=== PATIENT | female | born 1950 | race Caucasian/White ===

== ENCOUNTER 2017-01-17 15:18 | Emergency (ER) | payer OTHER, SELFPAY ==
[~2017-01-17 15:18] MED LIST: DIFLUCAN150 MG PO; ENSURE LIQUID237 ML PO; LEVOFLOXACIN500 MG PO; PRILOSEC OTC20 MG PO; SINGULAIR5 MG PO; VANCOMYCIN1.5 GM/250 IV; ZANAFLEX2 MG PO; ZANTAC300 MG PO; ZYVOX600 MG PO
[2017-01-17 17:00] LABS: BASO % 0.2 % (0.1-1.2); EOS # 0.2 10_X3_uL (0.0-0.4); EOS % 1.2 % (0.7-5.8); GRAN # 9.6 10_X3_uL (1.6-6.1); GRAN % 79.5 % (34.0-71.1); HEMATOCRIT 34.5 % (34-45); HEMOGLOBIN 11.1 g/dL (11.2-15.7); LYMPH # 1.1 10_X3_uL (1.2-3.7); MEAN CORPUSCULAR HGB CONC 32.2 g/dL (32.0-36.0); MEAN CORPUSCULAR VOLUME 87.1 fL (79-95); MEAN PLATELET VOLUME 9.3 fl (7.5-11.5); MONO # 1.2 10_X3_uL (0.2-0.9); MONO % 10.1 % (4.7-12.5); PLATELET COUNT 360 x10_3/uL (182-369); RED BLOOD COUNT 3.96 x10_6/uL (3.9-5.2); RED CELL DISTRIBUTION WIDTH 13.4 % (11.7-14.4)
[2017-01-17 17:18] LABS: ALBUMIN 3.4 gm/dL (3.4-5.0); ALKALINE PHOSPHATASE 94 U/L (50-136); ALT/SGPT 7 U/L (3.5-33.9); AST/SGOT 13 U/L (7.04-26.96); BLOOD UREA NITROGEN 27 mg/dL (7-18); CALCIUM 8.9 mg/dL (8.7-10.7); CARBON DIOXIDE 26 mmol/L (21-32); CREATININE 0.7 mg/dL (0.6-1.3); GLUCOSE,RANDOM 94 mg/dL (70-99); POTASSIUM 4.4 mmol/L (3.5-5.1); SODIUM 141 mmol/L (136-145); TOTAL PROTEIN 6.5 gm/dL (6.4-8.2)
[2017-01-17 17:19] LABS: BILIRUBIN,TOTAL < 0.15 mg/dL (0.0-1.0)
== END 2017-01-17 18:00 | disposition left against medical advice (07) ==
LOC: ER 15:18
PROVIDERS: Emergency Medicine
DX: C50.912 Malignant neoplasm of unspecified site of left female breast (principal); Z90.12 Acquired absence of left breast and nipple; K21.9 Gastro-esophageal reflux disease without esophagitis; M19.90 Unspecified osteoarthritis, unspecified site; R42 Dizziness and giddiness; Z88.0 Allergy status to penicillin; Z88.1 Allergy status to other antibiotic agents; Z88.2 Allergy status to sulfonamides
CPT/HCPCS: 36415; 80053; 85025; 99070; 99283

== ENCOUNTER 2017-02-21 08:26 | Observation (INO) | payer OTHER ==
[~2017-02-21] VITALS: Ht 154.9 cm; Wt 37.0 kg
[2017-02-21 09:09] LABS: BASO % 0.2 % (0.1-1.2); EOS % 0.2 % (0.7-5.8); GRAN # 16.8 10_X3_uL (1.6-6.1); GRAN % 87.6 % (34.0-71.1); HEMATOCRIT 33.4 % (34-45); HEMOGLOBIN 10.6 g/dL (11.2-15.7); LYMPH # 0.8 10_X3_uL (1.2-3.7); LYMPH % 4.4 % (19.3-51.7); MEAN CORPUSCULAR HEMOGLOBIN 26.8 pg (27.0-33.0); MEAN CORPUSCULAR HGB CONC 31.7 g/dL (32.0-36.0); MEAN CORPUSCULAR VOLUME 84.6 fL (79-95); MEAN PLATELET VOLUME 9.1 fl (7.5-11.5); MONO # 1.5 10_X3_uL (0.2-0.9); MONO % 7.6 % (4.7-12.5); PLATELET COUNT 364 x10_3/uL (182-369); RED BLOOD COUNT 3.95 x10_6/uL (3.9-5.2); WHITE BLOOD COUNT 19.2 x10_3/uL (4.0-10.0)
[2017-02-21 09:18] LABS: ALBUMIN 2.9 gm/dL (3.4-5.0); ALKALINE PHOSPHATASE 82 U/L (50-136); ALT/SGPT 7 U/L (3.5-33.9); AST/SGOT 15 U/L (7.04-26.96); BILIRUBIN,TOTAL 0.25 mg/dL (0.0-1.0); BLOOD UREA NITROGEN 16 mg/dL (7-18); CALCIUM 8.8 mg/dL (8.7-10.7); CARBON DIOXIDE 25 mmol/L (21-32); CREATININE 0.6 mg/dL (0.6-1.3); GLUCOSE,RANDOM 150 mg/dL (70-99); SODIUM 136 mmol/L (136-145)
[2017-02-22 06:26] LABS: BLOOD UREA NITROGEN 10 mg/dL (7-18); CALCIUM 7.2 mg/dL (8.7-10.7); CARBON DIOXIDE 24 mmol/L (21-32); CREATININE 0.6 mg/dL (0.6-1.3); POTASSIUM 5.9 mmol/L (3.5-5.1); SODIUM 134 mmol/L (136-145)
[2017-02-22 06:31] LABS: BASO % 0.2 % (0.1-1.2); EOS # 0.2 10_X3_uL (0.0-0.4); EOS % 1.5 % (0.7-5.8); GRAN # 10.7 10_X3_uL (1.6-6.1); GRAN % 82.4 % (34.0-71.1); HEMATOCRIT 27.4 % (34-45); HEMOGLOBIN 8.5 g/dL (11.2-15.7); LYMPH # 0.8 10_X3_uL (1.2-3.7); LYMPH % 6.1 % (19.3-51.7); MEAN CORPUSCULAR HEMOGLOBIN 26.3 pg (27.0-33.0); MEAN CORPUSCULAR VOLUME 84.8 fL (79-95); MEAN PLATELET VOLUME 9.8 fl (7.5-11.5); MONO # 1.3 10_X3_uL (0.2-0.9); MONO % 9.8 % (4.7-12.5); PLATELET COUNT 326 x10_3/uL (182-369); RED BLOOD COUNT 3.23 x10_6/uL (3.9-5.2); RED CELL DISTRIBUTION WIDTH 13.9 % (11.7-14.4)
[2017-02-22 06:44] LABS: GLUCOSE,RANDOM 435 mg/dL (70-99)
[2017-02-23 07:43] LABS: HEMATOCRIT 31.9 % (34-45); MEAN CORPUSCULAR HEMOGLOBIN 26.2 pg (27.0-33.0); MEAN CORPUSCULAR HGB CONC 31.3 g/dL (32.0-36.0); MEAN CORPUSCULAR VOLUME 83.5 fL (79-95); MEAN PLATELET VOLUME 9.4 fl (7.5-11.5); RED BLOOD COUNT 3.82 x10_6/uL (3.9-5.2); WHITE BLOOD COUNT 18.9 x10_3/uL (4.0-10.0)
[2017-02-23 07:53] LABS: ALBUMIN 2.7 gm/dL (3.4-5.0); ALKALINE PHOSPHATASE 72 U/L (50-136); ALT/SGPT 5 U/L (3.5-33.9); AST/SGOT 12 U/L (7.04-26.96); BILIRUBIN,TOTAL 0.22 mg/dL (0.0-1.0); BLOOD UREA NITROGEN 11 mg/dL (7-18); CALCIUM 8.4 mg/dL (8.7-10.7); CARBON DIOXIDE 26 mmol/L (21-32); CREATININE 0.6 mg/dL (0.6-1.3); GLUCOSE,RANDOM 97 mg/dL (70-99); POTASSIUM 4.2 mmol/L (3.5-5.1); SODIUM 137 mmol/L (136-145)
[2017-02-23 21:10] LABS: HEMOGLOBIN 8.7 g/dL (11.2-15.7); MEAN CORPUSCULAR HEMOGLOBIN 26.1 pg (27.0-33.0); MEAN CORPUSCULAR HGB CONC 31.1 g/dL (32.0-36.0); MEAN CORPUSCULAR VOLUME 84.1 fL (79-95); MEAN PLATELET VOLUME 9.4 fl (7.5-11.5); RED BLOOD COUNT 3.33 x10_6/uL (3.9-5.2); RED CELL DISTRIBUTION WIDTH 13.9 % (11.7-14.4); WHITE BLOOD COUNT 14.9 x10_3/uL (4.0-10.0)
[2017-02-24 07:23] LABS: BASO % 0.1 % (0.1-1.2); EOS # 0.1 10_X3_uL (0.0-0.4); EOS % 0.8 % (0.7-5.8); GRAN # 14.8 10_X3_uL (1.6-6.1); GRAN % 86.3 % (34.0-71.1); HEMATOCRIT 27.9 % (34-45); HEMOGLOBIN 8.7 g/dL (11.2-15.7); LYMPH # 0.8 10_X3_uL (1.2-3.7); LYMPH % 4.5 % (19.3-51.7); MEAN CORPUSCULAR HGB CONC 31.2 g/dL (32.0-36.0); MEAN CORPUSCULAR VOLUME 83.5 fL (79-95); MEAN PLATELET VOLUME 9.5 fl (7.5-11.5); MONO # 1.4 10_X3_uL (0.2-0.9); MONO % 8.3 % (4.7-12.5); PLATELET COUNT 349 x10_3/uL (182-369); RED BLOOD COUNT 3.34 x10_6/uL (3.9-5.2); WHITE BLOOD COUNT 17.2 x10_3/uL (4.0-10.0)
[2017-02-24 07:36] LABS: ALBUMIN 2.5 gm/dL (3.4-5.0); ALKALINE PHOSPHATASE 63 U/L (50-136); ALT/SGPT 5 U/L (3.5-33.9); AST/SGOT 12 U/L (7.04-26.96); BLOOD UREA NITROGEN 13 mg/dL (7-18); CALCIUM 8.1 mg/dL (8.7-10.7); CARBON DIOXIDE 26 mmol/L (21-32); CREATININE 0.6 mg/dL (0.6-1.3); GLUCOSE,RANDOM 102 mg/dL (70-99); POTASSIUM 4.1 mmol/L (3.5-5.1); SODIUM 138 mmol/L (136-145)
== END 2017-02-24 11:45 | disposition home or self-care (01) ==
LOC: ER 08:26 → MS 16:35 → UNDODEPER 02-24 09:49 → MS 02-24 11:45
PROVIDERS: Emergency Medicine; ADMIT Family Medicine
DX: C79.81 Secondary malignant neoplasm of breast (principal); C34.91 Malignant neoplasm of unspecified part of right bronchus or lung; E86.0 Dehydration; D64.9 Anemia, unspecified; L03.313 Cellulitis of chest wall; G89.3 Neoplasm related pain (acute) (chronic); J90 Pleural effusion, not elsewhere classified; R11.0 Nausea; R53.1 Weakness; R00.0 Tachycardia, unspecified; D72.829 Elevated white blood cell count, unspecified; I95.9 Hypotension, unspecified; E11.9 Type 2 diabetes mellitus without complications; Z90.12 Acquired absence of left breast and nipple; Z79.891 Long term (current) use of opiate analgesic; Z79.899 Other long term (current) drug therapy; Z88.0 Allergy status to penicillin; Z88.2 Allergy status to sulfonamides; Z88.1 Allergy status to other antibiotic agents
CPT/HCPCS: 36415; 71250; 80048; 80053; 82248; 82962; 83605; 85025; 87040; 96361; 96365; 96366; 96367; 96375; 99070; 99284; 99284-25; G0378; J7050